=== PATIENT | female | born 1960 | race Caucasian/White ===

== ENCOUNTER 2017-01-31 16:13 | Emergency (ER) | payer OTHER ==
[~2017-01-31] VITALS: Ht 167.6 cm; Wt 99.8 kg
[~2017-01-31 16:13] MED LIST: ASPIR 8181 MG PO; CELEBREX 200 M200 M1 PO; CRESTOR10 MG; FENOFIBRATE160 MG PO; GLUCOPHAGE500 MG PO; GLYBURIDE 3 MG M3 M1; GLYBURIDE 3 MG M3 M1 PO; IBUPROFEN 800800 M1 PO; LOPRESSOR25 PO; MICARDIS 20MG T20 M1 PO; MICARDIS40 MG; NEURONTIN 300300 M1 PO; NEXIUM 40 MG CA40 M1 PO; PERCOCET 5-3251 EACH PO
[2017-01-31 16:14] VITALS: BP 130/80
[2017-01-31] MEDS ORDERED: IBUPROFEN 600600 M1 PO (17:00)
[2017-01-31] MEDS ORDERED: ULTRAM 50MG TAB50 MG PO (17:00)
== END 2017-01-31 17:48 | disposition home or self-care (01) ==
LOC: ER 16:13
DX: S62.636A Displaced fracture of distal phalanx of right little finger, initial encounter for closed fracture (principal); E11.9 Type 2 diabetes mellitus without complications; E78.00 Pure hypercholesterolemia, unspecified; Z88.8 Allergy status to other drugs, medicaments and biological substances; Z88.0 Allergy status to penicillin; X58.XXXA Exposure to other specified factors, initial encounter; Y93.89 Activity, other specified; Y92.89 Other specified places as the place of occurrence of the external cause; Y99.8 Other external cause status

== ENCOUNTER 2019-04-21 22:12 | Inpatient (IN) | payer OTHER ==
[~2019-04-21] VITALS: Ht 167.6 cm; Wt 107.3 kg
[~2019-04-21 22:12] MED LIST changes: +IBUPROFEN 600600 M1 PO; +ULTRAM 50MG TAB50 MG PO
[2019-04-21 22:18] VITALS: BP 137/68
[2019-04-21 22:49] LABS: ABSOLUTE NEUTROPHILS 6.9 thou/uL (1.4-8.2); BASOPHILS 0.8 % (0.0-2.0); EOSINOPHILS 2.1 % (0.0-3.0); HEMATOCRIT 41.7 % (37.0-47.0); HEMOGLOBIN 12.8 gm/dL (12.0-15.0); LYMPHOCYTES 25.3 % (24.0-44.0); MCH 22.7 pg (26.0-34.0); MCHC 30.6 g/dL (28.0-37.0); MCV 74.1 fL (80.0-100.0); MONOCYTES 5.6 % (1.0-8.0); PLATELET COUNT 544 thou/uL (150-400); POLYS 66.2 % (36.0-66.0); RBC 5.63 mil/uL (4.20-5.00); RDW 18.5 % (10.5-14.5); WBC 10.5 thou/uL (4.0-11.0)
[2019-04-21 22:52] LABS: APTT 26.8 Seconds (24.5-32.8); PROTIME 10.7 Seconds (9.3-11.4)
[2019-04-21 22:53] LABS: ANION GAP 11 mmol/L (7-16); BUN 30 mg/dL (7-18); CHLORIDE 102 mmol/L (98-107); CO2 26 mmol/L (21-32); CREATININE 1.1 mg/dL (0.6-1.0); GLUCOSE 253 mg/dL (74-106); POTASSIUM 4.2 mmol/L (3.5-5.1); SODIUM 139 mmol/L (136-145)
[2019-04-21 23:03] LABS: ALBUMIN 3.5 g/dL (3.4-5.0); SGOT 36 U/L (15-37); SGPT 39 U/L (30-65); TOTAL BILIRUBIN 0.3 mg/dL (<0.1-1.0); TOTAL PROTEIN 6.7 g/dL (6.4-8.2); TROPONIN-I <0.06 ng/mL (<0.06)
[2019-04-22] VITALS (7 sets, daily range): BP systolic 97–165; BP diastolic 55–81
[2019-04-22] MEDS ORDERED: TRICOR145 MG PO (02:38)
[2019-04-22] MEDS ORDERED: AMARYL4 MG PO (02:45)
[2019-04-22] MEDS ORDERED: CRESTOR40 MG PO (02:47)
[2019-04-22] MEDS ORDERED: HYDROCHLOROTHIA25 M2 PO (02:48)
[2019-04-22] MEDS ORDERED: LANTUS100 UNIT/M SUBQ (02:50)
[2019-04-22] MEDS ORDERED: VICTOZA0.6 MG/0.1 SUBQ (02:51)
[2019-04-22] MEDS ORDERED: ZYRTEC 10 MG TA10 MG PO (02:52)
[2019-04-22] MEDS ORDERED: PROAIR RESPICL90 MCG INH (02:54)
[2019-04-22] MEDS ORDERED: NOVOLOG100 UNIT/1 SUBQ (02:55)
[2019-04-22] MEDS ORDERED: MICARDIS40 MG PO (03:02)
--- NOTE | 2019-04-22 07:49 | NUR ---
Arrived from ER around 0130 accompanied by daughter. Pt. is on amiodarone gtt. and has converted to SR on the way here from ER and has maintained SR. Denies any chest discomfort since arrival. O2 sat of 97% on 2L/NC and verbalized shortness of breath with exertion especially while her HR was elevated in ED. Will continue to monitor.
--- NOTE | 2019-04-22 11:27 | 2DMMODE ---
[facility] [address] [facility] [address] [place] [address] 2 D/M-MODE ECHOCARDIOGRAM Name: LUBNA MILLER Room #: 354-P ADM IN M.R.#: [id number] Admission: 04/22/19 Attend Phys: Tomas Londono MD Discharge: Date of : 56 Report #: [id number] THIS REPORT FOR: //name// APPROVED REPORT Study performed: 04/22/2019 10:40:47 EXAM: Comprehensive 2D, Doppler, and color-flow Echocardiogram Patient Location: Echo lab Room #: 354 Status: routine BSA: 2.15 HR: 78 bpm BP: 114/62 mmHg Rhythm: NSR Other Information Study Quality: Adequate Indications Atrial Fibrillation Hx: CAD with angioplasty, HTN, DM, obesity, tob abuse. 2D Dimensions RVDd: 37.28 mm IVSd: 12.35 (7-11mm) LVOT Diam: 20.48 (18-24mm) LVDd: 44.64 mm PWd: 12.45 (7-11mm) Ascending Ao: 28.50 (22-36mm) LVDs: 31.41 (25-40mm) Aortic Root: 27.78 mm Volumes Left Atrial Volume (Systole) Single Plane 4CH: 60.90 mL Single Plane 2CH: 67.86 mL LA ESV Index: 32.00 mL/m2 Aortic Valve AoV Peak Carmine.: 1.82 m/s AO Peak Gr.: 13.26 mmHg LVOT Max P.53 mmHg LVOT Max V: 1.46 m/s JULIO CÉSAR Vmax: 2.64 cm2 Mitral Valve E/A Ratio: 0.8 MV Decel. Time: 317.67 ms [facility] [place] [address] 2 D/M-MODE ECHOCARDIOGRAM Name: LUBNA MILLER Room #: 354-P [facility] IN [facility]#: [id number] Admission: 04/22/19 Attend Phys: Tomas Londono MD Discharge: Date of : 56 Report #: [id number] MV E Max Carmine.: 1.23 m/s MV A Carmine.: 1.52 m/s MV PHT: 92.12 ms IVRT: 51.90 ms Pulmonary Valve PV Peak Carmine.: 1.09 m/s PV Peak Gr.: 4.79 mmHg Pulmonary Vein P Vein S: 0.65 m/s P Vein A: 0.31 m/s P Vein D: 0.33 m/s P Vein A Dur.: 128.0 msec P Vein S/D Ratio: 1.97 Tricuspid Valve TR Peak Carmine.: 3.25 m/s RAP Estimate: 10.00 mmHg TR Peak Gr.: 42.27 mmHg PA Pressure: 52.00 mmHg Left Ventricle The left ventricle is normal size. There is normal LV segmental wall motion. Mild concentric left ventricular hypertrophy. Left ventricular systolic function is normal. LVEF is 65-70%. Mild diastolic dysfunction is present (impaired relaxation pattern). Right Ventricle The right ventricle is normal size. The right ventricular systolic function is normal. Atria The left atrium size is normal. The right atrium size is normal. Aortic Valve The aortic valve is normal in structure. No aortic regurgitation is present. There is no aortic valvular stenosis. Mitral Valve The mitral valve is normal in structure. Mild mitral annular calcification. Mild mitral regurgitation. Tricuspid Valve The tricuspid valve is normal in structure. Trace tricuspid regurgitation. Estimated PAP is 50-55mmHg. Pulmonic Valve [facility] [address] [place] [address] 2 D/M-MODE ECHOCARDIOGRAM Name: LUBNA MILLER Room #: 354-P [facility] IN .R.#: [id number] Admission: 04/22/19 Attend Phys: Tomas Londono MD Discharge: Date of : 56 Report #: [id number] Pulmonic valve is not well visualized. Trace pulmonic regurgitation. Great Vessels The aortic root is normal in size. The ascending aorta is normal in size. IVC is dilated and collapses <50% with inspiration. Pericardium There is no pericardial effusion. <Conclusion> The left ventricle is normal size. Mild concentric left ventricular hypertrophy. Left ventricular systolic function is normal. Mild diastolic dysfunction is present (impaired relaxation pattern). The right ventricle is normal size. The left atrium size is normal. The aortic valve is normal in structure. Mild mitral regurgitation. Trace tricuspid regurgitation. Estimated PAP is 50-55mmHg. <ELECTRONICALLY SIGNED> By: Sammy Whittaker MD 04/22/191126 26 26 Sammy Whittaker MD /INF
--- NOTE | 2019-04-22 15:09 | NUR ---
ASSESSMENT: CM REVIEWED CHART AND MET WITH PATIENT AT THE BEDSIDE. PT IS ALERT AND ORIENTED. PT WAS ADMITTED WITH CP AFIB/RVR. PT REPORTS SHE LIVES IN A HOUSE WITH HER DAUGHTER AND BROTHER. PT REPORTS SHE LIVES IN THE BASEMENT AND HAS ABOUT 11 STEPS WITH HANDRAILS TO GET DOWN THERE. PT REPORTS SHE IS INDEPENDENT WITH ADLS AND AMBULATION. PT DENIES HAVING OXYGEN AT HOME. CM DISCUSSED ROLE. PT DOES NOT ANTICIPATE HAVING ANY NEEDS AT DISCHARGE. CM WILL CONTINUE TO FOLLOW TO ASSIST NEEDED.
--- NOTE | 2019-04-23 03:25 | NUR ---
PT MAKING PROGRESS TOWARDS GOALS. DENIES ANY CHEST PAIN OVERNIGHT. NO AFIB OBSERVED PER TELE. NPO SINCE MIDNIGHT FOR AM STRESS TEST.
[2019-04-23 04:11] VITALS: BP 152/92
[2019-04-23 07:56] LABS: AMP/METHAMP Negative (Negative); BARBITURATES Negative (Negative); BENZODIAZEPINES Negative (Negative); COCAINE Negative (Negative); METHADONE Negative (Negative); OPIATES Negative (Negative); PCP Negative (Negative)
--- NOTE | 2019-04-23 07:57 | EKG ---
[address] [address] ELECTROCARDIOGRAM REPORT Name: LUBNA MILLER Room #: 354-P ADM IN M.R.#: [id number] Admission: 04/22/19 Attend Phys: Tomas Londono MD Discharge: Date of : 56 Report #: [id number] THIS REPORT FOR: //name// [facility] ED Test Date: 2019-04-21 Test Time: 22:19:22 Pat Name: LUBNA MILLER Department: Room: 354 Gender: F Dam Worker: JAMARI : 1960 Requested By: Ahmet Steele Order Number: [id number] MD: Mazin Davis Measurements Intervals [place] Rate: 190 P: OR: QRS: 27 QRSD: 85 T: 47 QT: 273 QTc: 486 Interpretive Statements Atrial fibrillation with rapid V-rate Minimal ST depression, inferior leads No previous ECG available for comparison Electronically Signed On 04-23-2019 7:57:35 CDT by Mazin Davis [email or web address] <ELECTRONICALLY SIGNED> By: Mazin Davis MD 04/23/19 0757 D: [id number] 18 Mazin Davis MD /LINN
[2019-04-23 08:00] VITALS: BP 131/79
--- NOTE | 2019-04-23 08:29 | HC ---
[facility] [place] [address] CONSULTATION Name: LUBNA MILLER Room #: 354-P ADM IN M.R.#: [id number] Admission: 04/22/19 Attend Phys: Tomas Londono MD Discharge: Date of : 56 Report #: [id number] THIS REPORT FOR: //name// CC: Tomas Londono [facility] physician/PCP Sang Garcia DATE OF SERVICE: 04/22/2019 CARDIOLOGY CONSULTATION INDICATION: Chest discomfort. HISTORY OF PRESENT ILLNESS: This is a 59-year-old female with a history of diabetes mellitus, obesity, hypercholesterolemia and edema, presenting with acute onset of chest discomfort. After dinner last evening, she felt chest discomfort and noted a fast heart rate on her Apple Watch. She felt palpitations as well. The patient denies any episodes of fever, diarrhea, cough or dysuria. In the ER, she was noted to have atrial fibrillation with a rapid ventricular rate. In the ER, she was managed with IV Cardizem with no significant improvement in the heart rate. She is given amiodarone IV and her rhythm has converted to sinus. Routinely, she does not offer any complaints of chest pains with ambulation. She does have dyspnea with walking upstairs, may be related to deconditioning. There is no history of PND or orthopnea. PAST MEDICAL HISTORY: Reports having possibly a coronary angiogram more than 20 years ago at [facility], unsure if stent was placed. History of diabetes mellitus, hypercholesterolemia and edema. Denies any history of CVA. ALLERGIES: Include LISINOPRIL, LOSARTAN and PENICILLIN. MEDICATIONS: Include Neurontin, Amaryl, Crestor 40 mg at night, hydrochlorothiazide daily, insulin, Victoza, Micardis 40 mg daily, metformin and aspirin. SOCIAL HISTORY: Denies tobacco use. FAMILY HISTORY: Negative for premature CAD. REVIEW OF SYSTEMS: A full 10-point review of systems performed. Only the pertinent positives and negatives are described in the HPI. PHYSICAL EXAMINATION: VITAL SIGNS: Blood pressure is 114/60, heart rate is 70 beats per minute. GENERAL APPEARANCE: An overweight female, in no acute distress. HEENT: Normocephalic, atraumatic. Oral mucosa moist. [facility] [address] [place] [address] CONSULTATION Name: LUBNA MILLER Room #: 354-P [facility] IN ..#: [id number] Admission: 04/22/19 Attend Phys: Tomas Londono MD Discharge: Date of : 56 Report #: [id number] NECK: Supple, no JVD. LUNGS: Clear to auscultation. CARDIAC: Regular rate and rhythm, S1, S2 positive. ABDOMEN: Soft, protuberant, bowel sounds positive. EXTREMITIES: No cyanosis, positive edema. ECG reveals atrial fibrillation with a rapid ventricular rate. LABORATORY VALUES: Creatinine is 1.1. White count is 10.5, hemoglobin is 12.8. Troponin is 0.15. ASSESSMENT AND PLAN: 1. Atrial fibrillation, newly diagnosed with symptoms of chest discomfort and palpitations. The rhythm has converted to sinus, on amiodarone. The CHADS-VASc score is approximately 2, will need anticoagulation therapy. Can discontinue IV amiodarone. We will need to evaluate her cardiac status with echo and stress test. 2. Troponin elevation, may be related to tachycardia. We will need an ischemic evaluation with stress testing. 3. Diabetes mellitus, continue with insulin and check fingersticks. 4. Hypercholesterolemia, continue with Crestor. 5. Hypertension. <ELECTRONICALLY SIGNED> By: Sammy Whittaker MD 04/23/19 0829 0902 1549 Sammy Whittaker MD /nt
[2019-04-23 12:45] VITALS: BP 138/74
--- NOTE | 2019-04-23 13:32 | NUR ---
on-going assessment: pt is to have second part of stress test completed today and then will likely discharge if it is negative. pt will have no needs from cm at discharge.
[2019-04-23 15:00] VITALS: BP 149/84
--- NOTE | 2019-04-23 16:14 | NUR ---
PT ALERT AND ORIENTED TIMES FOUR. VSS, SR ON TELE. PT DENEIS PAIN/SOA. PT TOLERATES MEDS AND MEALS. PT UP TO RESTROOM WITH STANDBY ASSIST. PART TWO OF STRESS TEST DONE TODAY. PT WILL NPO AFTER MIDNIGHT FOR CARDIAC CATH TOMORROW. PT DAUGHTER AT BEDSIDE. WILL CONTINUE TO MONITOR.
[2019-04-23 19:45] VITALS: BP 185/98
--- NOTE | 2019-04-24 03:12 | NUR ---
patient is alert and oriented. paitnet is up ad marcial. patient is on room air. patient is pending cath today. patient has been npo sense midnight. patient had pre op bath. patient has a Lt AC iv. patient is achs accuchecks. patient is nsr. patient denies pain. patient is resting comfortably in bed. wcm. patient is progressing to goals.
[2019-04-24 04:15] VITALS: BP 156/80
[2019-04-24 05:48] LABS: ABSOLUTE NEUTROPHILS 4.9 thou/uL (1.4-8.2); BASOPHILS 1.1 % (0.0-2.0); EOSINOPHILS 2.6 % (0.0-3.0); HEMATOCRIT 37.5 % (37.0-47.0); HEMOGLOBIN 11.6 gm/dL (12.0-15.0); LYMPHOCYTES 27.4 % (24.0-44.0); MCHC 31.1 g/dL (28.0-37.0); MONOCYTES 6.5 % (1.0-8.0); POLYS 62.4 % (36.0-66.0); RBC 5.06 mil/uL (4.20-5.00); RDW 18.2 % (10.5-14.5); WBC 7.8 thou/uL (4.0-11.0)
[2019-04-24 05:58] LABS: PLATELET COUNT 434 thou/uL (150-400)
[2019-04-24 06:09] LABS: ALBUMIN 3.4 g/dL (3.4-5.0); CALCIUM 8.9 mg/dL (8.5-10.1); CREATININE 0.8 mg/dL (0.6-1.0); POTASSIUM 4.3 mmol/L (3.5-5.1); TOTAL BILIRUBIN 0.4 mg/dL (<0.1-1.0); TOTAL PROTEIN 6.1 g/dL (6.4-8.2)
[2019-04-24 08:59] VITALS: BP 141/84
--- NOTE | 2019-04-24 10:21 | CATHLAB ---
[facility] [address] [place] [address] INVASIVE PROCEDURE REPORT Name: LUBNA MILLER Room #: 354-P ADM IN .R.#: [id number] Admission: 04/22/19 Attend Phys: Tomas Londono MD Discharge: Date of : 56 Report #: [id number] THIS REPORT FOR: //name// APPROVED REPORT Study performed: 04/24/2019 08:18:43 Patient Details Patient Status: In-Patient Room #: The patient is a 59 year-old female Event Personnel Sammy Whittaker Manufacture Specialist, Hardik Castellanos RN RN, Sophia Sethi RTR Gary Still David Monitor Procedures Performed Left Heart Cath w/or w/o Coronaries [id number] [facility] Indication Atrial fibrillation, Dyspnea, Positive stress test, Chest pain Risk Factors Obesity, Hypercholesterolemia, Coronary Artery DiseaseHypertension, Diabetes Procedure Narrative The Right Groin^ was infiltrated with 1% Lidocaine subcutaneous anesthesia. A PINNACLE 4FR Sheath #[id number] sheath was inserted into the RFA^. Coronary angiography was performed using coronary diagnostic catheters. The right coronary system was accessed and visualized with a JR4 catheter. The left coronary system was accessed and visualized with a JL4 catheter. The left ventricle was accessed and visualized with a PIGTAIL catheter. Left ventricular/Aortic Valve gradient assessed via catheter pullback. Left ventriculogram was performed in 30 degree projection. Hemostasis was obtained with manual pressure following sheath removal without any complications. The patient tolerated the procedure well and there were no complications associated with the procedure. There was no hematoma. Intraoperative Conscious Sedation Sedation start time: 8.10 Case end Time: 8.37 Fentanyl 50 mcg Versed 1 mg [facility] [address] [place] [address] INVASIVE PROCEDURE REPORT Name: LUBNA MILLER Room #: 354-P [facility] IN [facility]#: [id number] Admission: 04/22/19 Attend Phys: Tomas Londono MD Discharge: Date of : 56 Report #: [id number] Fluoro Time: 2.60 minutes Dose: DAP 5199.00 cGycm2 1223 mGy Contrast Type and Amount: Omnipaque 100 ml Coronary Angiography The patient's coronary anatomy is right dominant. Diagnostic Cath Left Main This is a large caliber vessel, patent with no flow-limiting lesions. LAD This is a moderate size caliber vessel, traversing the anterior wall and wrapping around the apex. There is mild diffuse disease in the mid segment, 20%. Diagonal 1 This is a patent vessel, with no flow-limiting lesions. Circumflex This is a moderate size caliber vessel, with mild disease in the mid segment, 20%. OM1 This is a moderate size caliber vessel, travels the inferolateral segment and supplies several branches. This vessel is patent with no flow-limiting lesions. Right Coronary This is a dominant vessel with mild to moderate disease in the proximal segment, 30-40%. R PDA This is a patent vessel, with no flow-limiting lesions. RPLV This is a patent vessel, with no flow-limiting lesions. Left Ventriculography The left ventricle is normal in size with normal contractility. Hemodynamics The aortic pressure is 150/84 mmHg with a mean of 109 mmHg. The left ventricular pressure is 149/15 mmHg with a mean of mmHg. The left ventricular end diastolic pressure is 24 mmHg. There was no gradient across the aortic valve upon pullback. Pullback from the left ventricle to the aorta revealed no gradient across the aortic valve. Conclusion 1. There is mild disease in the LAD and left circumflex arteries. 2. There is mild to moderate disease in the RCA. [facility] [address] [place] [address] INVASIVE PROCEDURE REPORT Name: LUBNA MILLER Room #: 354-P ADM IN M.R.#: [id number] Admission: 04/22/19 Attend Phys: Tomas Londono MD Discharge: Date of : 56 Report #: [id number] 3. There is normal LV systolic function. 4. Recommend aggressive risk factor management. <ELECTRONICALLY SIGNED> By: Sammy Whittaker MD 04/24/19 1020 1020 1020 Sammy Whittaker MD /INF
[2019-04-24 11:19] VITALS: BP 183/91
[2019-04-24] MEDS ORDERED: ELIQUIS5 MG PO (11:19)
[2019-04-24] MEDS ORDERED: METOPROLOL SUCC25 M1 PO (11:19)
[2019-04-24 11:55] VITALS: BP 183/91
--- NOTE | 2019-04-24 12:57 | NUR ---
ON-GOING ASSESSMENT: PT HAS ORDERS TO DISCHARGE HOME TODAY.
--- NOTE | 2019-04-24 16:46 | NUR ---
PATIENT DISCHARGED HOME WITH FAMILY. SHE IS ALERT ORIENTED X4. SHE DOES NOT SEEM TO BE IN ANY DISTRESS AT TIME OF DISCHARGED. NEW MEDS EXPLAINED. DRESSING TO CATH INCISION REMAINS INTACT, NO BLOOD NOTED.
--- NOTE | 2019-04-25 15:07 | EKG ---
[address] [address] ELECTROCARDIOGRAM REPORT Name: LUBNA MILLER Room #: 354-P [facility] IN M.R.#: [id number] Admission: 04/22/19 Attend Phys: Tomas Londono MD Discharge: 04/24/19 Date of : 56 Report #: [id number] THIS REPORT FOR: //name// [facility] Test Date: 2019-04-24 Test Time: 07:44:39 Pat Name: LUBNA MILLER Department: Room: 354 Gender: F Casing Crew: FEROZ : 1960 Requested By: Malika Staton Order Number: [id number] MD: Mazin Davis Measurements Intervals [place] Rate: 83 P: 2 IA: 143 QRS: 48 QRSD: 89 T: 53 QT: 405 QTc: 476 Interpretive Statements Sinus rhythm Ventricular trigeminy Low voltage, precordial leads Compared to ECG 04/21/2019 22:19:22 Ventricular premature complex(es) now present Low QRS voltage now present Atrial fibrillation no longer present ST (T wave) deviation no longer present Electronically Signed On 04-25-2019 15:07:15 CDT by Mazin Davis [email or web address] <ELECTRONICALLY SIGNED> By: Mazin Davis MD 04/25/19 1507 0744 0744 Mazin Davis MD /EPI
== END 2019-04-24 13:35 | disposition home or self-care (01) | DRG 287 ==
LOC: ER 22:12 → 3W 04-22 00:01 → EROBS 04-22 00:01 → 3W 04-22 01:10 → ENTRNSPT 04-24 11:56 → EDTRNSPTSTS 04-24 12:34 → 3W 04-24 13:35
PROVIDERS: Emergency Medicine; Nurse Practitioner; ADMIT Hospitalist
DX: I48.91 Unspecified atrial fibrillation (principal); I25.10 Atherosclerotic heart disease of native coronary artery without angina pectoris; E11.9 Type 2 diabetes mellitus without complications; I10 Essential (primary) hypertension; E83.42 Hypomagnesemia; E78.00 Pure hypercholesterolemia, unspecified; Z88.0 Allergy status to penicillin; Z88.8 Allergy status to other drugs, medicaments and biological substances; Z87.891 Personal history of nicotine dependence; Z82.49 Family history of ischemic heart disease and other diseases of the circulatory system; Z83.3 Family history of diabetes mellitus; Z79.82 Long term (current) use of aspirin; Z79.899 Other long term (current) drug therapy
CPT/HCPCS: 10879

== ENCOUNTER → 2019-11-10 | Outpatient (CLI) | payer OTHER ==
[~2019-11-10] MED LIST changes: +AMARYL4 MG PO; +CRESTOR40 MG PO; +ELIQUIS5 MG PO; +HYDROCHLOROTHIA25 M2 PO; +LANTUS100 UNIT/M SUBQ; +METOPROLOL SUCC25 M1 PO; +MICARDIS40 MG PO; +NOVOLOG100 UNIT/1 SUBQ; +PROAIR RESPICL90 MCG INH; +TRICOR145 MG PO; +VICTOZA0.6 MG/0.1 SUBQ; +ZYRTEC 10 MG TA10 MG PO
== END ==
LOC: SJCVC 13:05
DX: I48.91 Unspecified atrial fibrillation (principal); I10 Essential (primary) hypertension; E78.00 Pure hypercholesterolemia, unspecified; R60.9 Edema, unspecified; E11.9 Type 2 diabetes mellitus without complications; I25.10 Atherosclerotic heart disease of native coronary artery without angina pectoris; E66.9 Obesity, unspecified; Z87.891 Personal history of nicotine dependence; Z79.82 Long term (current) use of aspirin; Z79.899 Other long term (current) drug therapy; Z79.84 Long term (current) use of oral hypoglycemic drugs

== ENCOUNTER → 2020-05-18 | Outpatient (CLI) | payer OTHER | LOC: SJCVC 14:44 | PROVIDERS: ATTEND Internal Medicine Cardiovascular Disease | DX: I25.10 Atherosclerotic heart disease of native coronary artery without angina pectoris (principal); I48.0 Paroxysmal atrial fibrillation; I10 Essential (primary) hypertension; E78.00 Pure hypercholesterolemia, unspecified ==

== ENCOUNTER → 2020-06-21 | Outpatient (CLI) | payer OTHER | LOC: SJCVC 14:27 | PROVIDERS: ATTEND Internal Medicine Cardiovascular Disease | DX: R00.2 Palpitations (principal); I11.9 Hypertensive heart disease without heart failure; I25.10 Atherosclerotic heart disease of native coronary artery without angina pectoris; I48.0 Paroxysmal atrial fibrillation ==

== ENCOUNTER → 2020-06-30 | Outpatient (CLI) | payer OTHER ==
--- NOTE | 2020-06-30 11:37 | 2DMMODE ---
[facility] [place] [address] 2 D/M-MODE ECHOCARDIOGRAM Name: LUBNA MILLER Room #: REG MARISELA Janett#: [id number] Admission: 06/30/20 Attend Phys: Sammy Whittaker MD Discharge: Date of : 56 Report #: [id number] THIS REPORT FOR: cc: Physician not on staff Physician not on staff Sammy Whittaker MD ~ APPROVED REPORT Study performed: 06/30/2020 10:11:20 EXAM: Comprehensive 2D, Doppler, and color-flow Echocardiogram Patient Location: Echo lab Room #: 2 Status: routine BSA: 2.08 HR: 130 bpm BP: 130/88 mmHg Rhythm: Tachycardia Other Information Study Quality: Adequate Indications Arrhythmia Dyspnea Hx: HTN 2D Dimensions RVDd: 40.04 mm IVSd: 13.23 (7-11mm) LVOT Diam: 18.21 (18-24mm) LVDd: 44.66 mm PWd: 14.24 (7-11mm) Ascending Ao: 25.45 (22-36mm) LVDs: 28.98 (25-40mm) Aortic Root: 22.57 mm IVC: 25.00 mm Volumes Left Atrial Volume (Systole) Single Plane 4CH: 88.11 mL Single Plane 2CH: 74.48 mL LA ESV Index: 40.65 mL/m2 Aortic Valve AoV Peak Carmine.: 1.68 m/s AO Peak Gr.: 11.30 mmHg LVOT Max P.44 mmHg LVOT Max V: 1.05 m/s [facility] [place] [address] [place] [address] 2 D/M-MODE ECHOCARDIOGRAM Name: LUBNA MILLER Room #: REG [facility]#: [id number] Admission: 06/30/20 Attend Phys: Sammy Whittaker MD Discharge: Date of : 56 Report #: [id number] JULIO CÉSAR Vmax: 1.63 cm2 Pulmonary Valve PV Peak Carmine.: 0.81 m/s PV Peak Gr.: 2.62 mmHg Tricuspid Valve TR Peak Carmine.: 3.00 m/s TR Peak Gr.: 35.98 mmHg PA Pressure: 46.00 mmHg Left Ventricle The left ventricle is normal size. There is global hyperkinesis of the left ventricle. Mild concentric left ventricular hypertrophy. The left ventricular systolic function is normal. LVEF is 60%. This study is not technically sufficient to allow evaluation of the LV diastolic function due to arrhythmia. Right Ventricle The right ventricle is normal size. The right ventricular systolic function is normal. Atria Left atrium is dilated. Right atrium is dilated. Aortic Valve The aortic valve is normal in structure. No aortic regurgitation is present. There is no aortic valvular stenosis. Mitral Valve The mitral valve is normal in structure. Mild mitral regurgitation. No evidence of mitral valve stenosis. Tricuspid Valve The tricuspid valve is normal in structure. Mild tricuspid regurgitation. Estimated PAP 46mmHg. Pulmonic Valve Pulmonic valve is not well visualized but appears normal. There is no pulmonic valvular regurgitation. Great Vessels The aortic root is normal in size. The ascending aorta is normal in size. IVC is dilated and collapses >50% with inspiration. Pericardium [facility] [address] [address] 2 D/M-MODE ECHOCARDIOGRAM Name: LUBNA MILLER Room #: REG CL [facility]#: [id number] Admission: 06/30/20 Attend Phys: Sammy Whittaker MD Discharge: Date of : 56 Report #: [id number] There is no pericardial effusion. <Conclusion> The left ventricle is normal size. Mild concentric left ventricular hypertrophy. The left ventricular systolic function is normal. The right ventricle is normal size. Left atrium is dilated. The aortic valve is normal in structure. Mild mitral regurgitation. Mild tricuspid regurgitation. Estimated PAP 46mmHg. <ELECTRONICALLY SIGNED> By: Sammy Whittaker MD 06/30/20 1136 1136 1136 Sammy Whittaker MD /INF
== END ==
LOC: CV 09:27
PROVIDERS: ATTEND Internal Medicine Cardiovascular Disease
DX: I08.1 Rheumatic disorders of both mitral and tricuspid valves (principal); I10 Essential (primary) hypertension

== ENCOUNTER → 2020-07-08 | Outpatient (CLI) | payer OTHER | LOC: SJCVC 14:58 | PROVIDERS: ATTEND Internal Medicine Cardiovascular Disease | DX: R94.31 Abnormal electrocardiogram [ECG] [EKG] (principal); I48.91 Unspecified atrial fibrillation; E66.9 Obesity, unspecified; E11.9 Type 2 diabetes mellitus without complications; I10 Essential (primary) hypertension; E78.5 Hyperlipidemia, unspecified ==

== ENCOUNTER 2020-07-12 14:36 | Inpatient (IN) | payer OTHER ==
[~2020-07-12] VITALS: Ht 165.1 cm; Wt 94.3 kg
[2020-07-12 14:38] VITALS: BP 127/71
[2020-07-12 15:12] LABS: BE(vivo) -2.9 mmol/L (-2 to +3); sO2 83.2 % (92.0-98.0)
[2020-07-12 15:13] LABS: PO2 52.9 mmHg (80.0-100.0); pH 7.291 (7.360-7.450)
[2020-07-12 15:30] LABS: ABSOLUTE NEUTROPHILS 10.2 thou/uL (1.4-8.2); BASOPHILS 1.3 % (0.0-2.0); EOSINOPHILS 1.2 % (0.0-3.0); HEMATOCRIT 35.7 % (37.0-47.0); HEMOGLOBIN 11.1 gm/dL (12.0-15.0); LYMPHOCYTES 11.4 % (24.0-44.0); MCHC 31.2 g/dL (28.0-37.0); MONOCYTES 5.6 % (1.0-8.0); PLATELET COUNT 570 thou/uL (150-400); POLYS 80.5 % (36.0-66.0); RBC 4.64 mil/uL (4.20-5.00); RDW 17.6 % (10.5-14.5); WBC 12.7 thou/uL (4.0-11.0)
[2020-07-12 15:38] LABS: ANION GAP 8 mmol/L (7-16); BUN 52 mg/dL (7-18); CALCIUM 9.3 mg/dL (8.5-10.1); CHLORIDE 107 mmol/L (98-107); CO2 28 mmol/L (21-32); GLUCOSE 192 mg/dL (74-106); SODIUM 143 mmol/L (136-145)
[2020-07-12 15:46] LABS: ALBUMIN 3.6 g/dL (3.4-5.0); SGOT 14 U/L (15-37); SGPT 20 U/L (30-65); TOTAL BILIRUBIN 0.6 mg/dL (0.2-1.0); TOTAL PROTEIN 6.9 g/dL (6.4-8.2); TROPONIN-I <0.06 ng/mL (<0.06)
[2020-07-12 17:31] VITALS: BP 114/34
[2020-07-12 18:38] LABS: FOLIC ACID 18.7 ng/mL (8.6-58.9)
[2020-07-12 23:06] LABS: BE(vivo) -4.7 mmol/L (-2 to +3); HCO3 22.8 mmol/L (22.0-26.0); PCO2 52.6 mmHg (35.0-45.0); PO2 139.4 mmHg (80.0-100.0); sO2 98.4 % (92.0-98.0)
[2020-07-12 23:08] LABS: pH 7.254 (7.360-7.450)
[2020-07-12 23:14] LABS: URINE BILIRUBIN 1+ (Negative); URINE BLOOD NEGATIVE (Negative); URINE CLARITY SL CLOUDY; URINE COLOR YELLOW; URINE GLUCOSE-RANDOM* TRACE (Negative); URINE KETONES NEGATIVE (Negative); URINE LEUKOCYTES-REFLEX NEGATIVE (Negative); URINE NITRITE-REFLEX NEGATIVE (Negative); URINE PROTEIN (DIPSTICK) 3+ (Negative); URINE SPECIFIC GRAVITY >= 1.030 (1.005-1.035)
[2020-07-12 23:22] LABS: AMORPHOUS URATES Few /LPF (None Seen); BACTERIA-REFLEX 1-9 Few /HPF (None Seen); CELLULAR CASTS 0-3 Few /LPF (None Seen); HYALINE CASTS 4-10 Moderate /LPF (None Seen); MUCUS 4-6 Moderate strn/LPF (None Seen); SQUAMOUS 0-3 Few /LPF (0-3); URINE RBC 0-2 Rare /HPF (0-2); URINE WBC-REFLEX 0-5 Rare /HPF (0-5)
[2020-07-12 23:49] VITALS: BP 114/58
[2020-07-13] VITALS (73 sets, daily range): BP systolic 95–176; BP diastolic 34–100
[2020-07-13 01:22] LABS: BE(vivo) -4.1 mmol/L (-2 to +3); HCO3 23.3 mmol/L (22.0-26.0); PCO2 53.2 mmHg (35.0-45.0); PO2 84.5 mmHg (80.0-100.0); pH 7.259 (7.360-7.450); sO2 94.8 % (92.0-98.0)
[2020-07-13 04:48] LABS: BE(vivo) -3.6 mmol/L (-2 to +3); HCO3 23.9 mmol/L (22.0-26.0); PCO2 54.6 mmHg (35.0-45.0); PO2 129.5 mmHg (80.0-100.0); sO2 98.1 % (92.0-98.0)
[2020-07-13 04:53] LABS: pH 7.259 (7.360-7.450)
--- NOTE | 2020-07-13 06:23 | NUR ---
Pt arrived on floor at 0120 with ER nurse. Is drowsy, awakens to sternal rub. Assessments done as documented. Continues on BIPAP settings with FIO2 of 50%. No respiratory disress noted. Family notified of patient's admission to ICU. Critical labs read to DR Solorio through the phone. BIPAP settings changed as per order. Will continue to monitor.
[2020-07-13 07:32] LABS: POTASSIUM 5.9 mmol/L (3.5-5.1)
[2020-07-13 07:34] LABS: MCHC 29.8 g/dL (28.0-37.0); WBC 12.9 thou/uL (4.0-11.0)
[2020-07-13 07:37] LABS: ABSOLUTE NEUTROPHILS 11.8 thou/uL (1.4-8.2); BASOPHILS 0.1 % (0.0-2.0); EOSINOPHILS 0.2 % (0.0-3.0); HEMATOCRIT 34.7 % (37.0-47.0); HEMOGLOBIN 10.3 gm/dL (12.0-15.0); MCH 23.2 pg (26.0-34.0); MCV 78.1 fL (80.0-100.0); MONOCYTES 2.2 % (1.0-8.0); PLATELET COUNT 496 thou/uL (150-400); POLYS 91.5 % (36.0-66.0); RBC 4.44 mil/uL (4.20-5.00); RDW 17.8 % (10.5-14.5)
[2020-07-13 09:25] LABS: CHOLESTEROL 136 mg/dL (<200); HDL CHOLESTEROL 33 mg/dL (>40); LDL CHOLESTEROL 76 mg/dL (<100); TC:HDL 4.1 Ratio (Not establshd); TRIGLYCERIDE 136 mg/dL (<150); VLDL 27 mg/dL (<40)
[2020-07-13 10:33] LABS: ANISOCYTOSIS 1+; BURR CELLS FEW; OVALOCYTES FEW; POIKILOCYTOSIS 1+; POLYCHROMASIA SLIGHT
--- NOTE | 2020-07-13 10:34 | NUR ---
cm completed the initial assessment to discuss hx and home situation. cm spk w/pt's dtr, paramjit. pt lives w/dtr and brother. pt is paramjit "legal guardian" and takes care of brother. pt drives, active and independent w/adls. pt has no dme. cm to cont to follow.
--- NOTE | 2020-07-13 18:39 | NUR ---
AT THIS TIME, PT IS ORIENTED TO SELF, PLACE, AND SITUATION. PT IS UNRESTRAINED, BUT IN HIGH OBSERVATION. PT VERBALIZES THAT SHE WILL NOT PULL LINES OR TUBES. O2 2L/MIN VIA NC W/ SPO2 98%. PT COUGHS AND DEEP BREATHES UPON REQUEST. DIURESED WELL TODAY. PT HAS BEEN NPO MOST OF THE DAY DUE TO BIPAP, BUT TAKES SIPS OF WATER WITHOUT PROBLEM AT THIS TIME. OVERALL, PT IS PROGRESSING TOWARD GOALS.
[2020-07-14] VITALS (30 sets, daily range): BP systolic 97–220; BP diastolic 38–159
[2020-07-14 01:06] LABS: GLYCOHEMOGLOBIN (HGB A1C) 7.9 % (4.8-5.6)
[2020-07-14 03:53] LABS: BE(vivo) 1.2 mmol/L (-2 to +3); HCO3 26.8 mmol/L (22.0-26.0); PCO2 46.7 mmHg (35.0-45.0); PO2 63.4 mmHg (80.0-100.0); pH 7.377 (7.360-7.450); sO2 91.7 % (92.0-98.0)
--- NOTE | 2020-07-14 04:34 | NUR ---
ASSESSMENTS CHARTED, MEDS CHARTED GIVEN. PATIENT ABLE TO ANSWER QUESTIONS APPROPRIATELY, BUT CONFUSED AND FORGETFUL ABOUT OTHER TIMES AND RECENT HISTORY. PATIENT PULLED OUT HER REMAINING IV, IV TEAM CAME AND PLACED NEW PIV IN LEFT UPPER ARM. GRANADOS IN PLACE DIURESING WELL, PATIENT SPOKE WITH HER DAUGHTER ALAINA TWICE DURING SHIFT. SKIN INTACT. AT 0400 PATIENT WENT INTO AFIB RVR AND CAME OUT OF IT ON HER OWN. EVENTUALLY SETTLED IN SINUS RHYTHM AGAIN. PATIENT WILL HOPEFULLY BE DOWN GRADED TODAY SHE IS BECOMING MORE ALERT AND VITALS STABLE. FALL PRECAUTIONS IN PLACE DURING SHIFT.
[2020-07-14 06:50] LABS: ALBUMIN 3.3 g/dL (3.4-5.0); CALCIUM 9.6 mg/dL (8.5-10.1); TOTAL BILIRUBIN 0.7 mg/dL (0.2-1.0); TOTAL PROTEIN 6.2 g/dL (6.4-8.2)
[2020-07-14 06:53] LABS: POTASSIUM 4.7 mmol/L (3.5-5.1)
[2020-07-14 10:10] LABS: HEMATOCRIT 34.2 % (37.0-47.0); HEMOGLOBIN 10.3 gm/dL (12.0-15.0); MCH 23.2 pg (26.0-34.0); MCHC 30.2 g/dL (28.0-37.0); MCV 76.8 fL (80.0-100.0); PLATELET COUNT 505 thou/uL (150-400); RBC 4.46 mil/uL (4.20-5.00); RDW 17.7 % (10.5-14.5); WBC 12.7 thou/uL (4.0-11.0)
[2020-07-14 10:48] LABS: ABSOLUTE NEUTROPHILS 11.8 thou/uL (1.4-8.2); PLATELET ESTIMATE NORMAL
--- NOTE | 2020-07-14 12:46 | NUR ---
PT'S DAUGHTER, ALAINA, HERE TO SEE PT. PT ASKED ALAINA TO TAKE HER PURSE AND ALL IT CONTAINS HOME WHEN SHE LEAVES. UPDATE GIVEN TO ALAINA.
--- NOTE | 2020-07-14 15:54 | NUR ---
Chart reveiwed and case discussed with the care team. Possible transfer out of the ICU today. She is progressing and was evaluated by PT/OT today. Dtr Jess here to visit. The pt is the legal guardian for her adult dtr Jess. They live in a basement apartment of her brother's home. The pt and her dtr are the caregivers for her brother who has alzh disease. They do the house hold chores and help manage his meds and finances. The pt is normally indep, drives and has 9 steps into the basement per the garage and another 9 steps up to the main level where her brother lives. The pt's dtr is able to help with Iadl's in the home. The pt is bilingual but dtr did help translate some during therapy sessions today. Will see how the pt does with therapy tomorrow as she will likely need HH referral. Unable to speak with the pt at this time as she is getting an EKG. INTELLIGENCE OFFICER updated. Will follow up with the pt on CCU regardin HH options and care team recommendations. Pt's dtr anxious for her mom to come back home soon.
--- NOTE | 2020-07-14 15:58 | NUR ---
PT DEVELOPED AFIB W/ RVR RATES 130'S TO 160'S. PT VERBALIZES, "I FEEL FUNNY, LIKE MY HEART IS RACING." O2 2L/MIN VIA NC PLACED. PT IS UP IN CHAIR WITH NO OTHER COMPLAINTS. DAUGHTER AT BEDSIDE AND UPDATED. EKG ORDERED AND DR. FELDMAN PAGED.
--- NOTE | 2020-07-14 16:17 | NUR ---
SPOKE W/ DR. MILLER WHO WAS IN THE UNIT ABOUT PT'S AFIB W/ RVR. ORDERS RECEIVED FOR AMIODARONE W/ LOADING DOSE. PT WAS PLACED IN BED FOR EKG AND ENCOURAGED TO STAY IN THE BED FOR NOW. DAUGHTER AT BEDSIDE. CONTACTED TOBIAS ADAMS NP, TO PROVIDE UPDATE, AND SHE STATED SHE WOULD NOTIFY DR. FELDMAN OF PT STATUS CHANGE AND DR. MILLER'S ORDERS, AND PROVIDE UPDATED ORDERS IF NEEDED.
--- NOTE | 2020-07-14 17:32 | NUR ---
PT BACK IN BED, O2 2L/MIN VIA NC, AFIB W/ RVR PERSISTS. PT MILDLY SOB W/ EXERTION. DISCOURAGED OOB ACTIVITY AT THIS TIME. AMIODARONE INFUSING @ 1MG/MIN AFTER LOADING DOSE COMPLETED. PT TOLERATING WELL. PT NOT PROGRESSING TOWARD GOALS AT THIS TIME DUE TO PERSISTENT AFIB W/ RVR. URINE OUTPUT EXCELLENT SECONDARY TO DIURESIS. APPETITE GOOD.
--- NOTE | 2020-07-14 18:40 | NUR ---
PT STILL ATTEMPTING TO EXIT THE BED WITHOUT CALLING FOR ASSISTANCE, SETTING OFF BED ALARM. PT IS VERY FORGETFUL AND IMPULSIVE. PT VERBALIZES CONCERN ABOUT HER ADULT DAUGHTER WHO IS AT HOME ALONE WITH HER UNCLE WHO HAS DEMENTIA. PT C/O BEING HOT. FAN TURNED ON AND WET WASHCLOTH PROVIDED. WILL CONTINUE TO MONITOR CLOSELY.
--- NOTE | 2020-07-14 18:43 | NUR ---
SPOKE WITH DAUGHTER, ALAINA. UPDATE PROVIDED.
--- NOTE | 2020-07-14 22:57 | NUR ---
AT AROUND 1950 PATIENT STARTED TRYING TO GET OUT OF BED. PATIENT SET OFF THE BED ALARM. PATIENT INSTRUCTED TO GET BACK INTO BED. THIS WORKED A COUPLE OF TIMES. THEN THE PATIENT STATED SHE HAD TO LEAVE AND GO HOME. PATIENT THEN REFUSED TO HEED INSTRUCTIONS AND TRIED TO JUST GET UP. I STOOD IN FRONT OF THE PATIENT AND TOLD HER SHE NEEDED TO STAY IN BED. PATIENT GOT ANGRY AND BELIGERENT. THE OTHER STAFF ON THE UNIT CAME. PATIENT BECAME MORE ANGRY AND STARTED SWINGING AT THE STAFF WHILE TRYING TO PULL OUT HER CATHETER, HER IV, SHE PULLED OUT THE CALL LIGHT, AND EVERYTHING ELSE. PATIENT WAS RESTRAINED WITH SOFT WRIST RESTRAINTS AT ABOUT 1999. BRAYAN ANAYA CONTACTED, AND HALDOL WAS ORDERED. HALDOL WAS ADMINISTERED. PATIENT'S DAUGHTER VISITED WITH HER, AND SHE BECAME MORE CALM. RESTRAINTS WERE REMOVED AT 2129. AT 2144 PATIENT STARTED BECOMING MORE AGITATED AND TRIED TO GET OUT OF BED, PULL AT HER LINES AND CATHETER. BRAYAN ANAYA CALLED AGAIN. PATIENT GIVEN HYDROXIZINE. PATIENT AT 2300'S BP HAS BEEN INCREASING, PATIENT IS STILL ANXIOUS AND AGITATED, AND PATIENT'S HR IS STILL AFIB RVR AT AROUND 140-170. BRAYAN ANAYA IS AWARE OF THIS.
[2020-07-15] VITALS (23 sets, daily range): BP systolic 127–166; BP diastolic 62–104
--- NOTE | 2020-07-15 04:11 | NUR ---
SPOKE WITH DR. HARRINGTON ABOUT PATIENT'S HEART RATE. IT HAS COME DOWN ABOUT 20-30 BPM SINCE STARTING CARDIZEM, BUT SHE IS STILL RUNNING 130S-140S. NO NEW ORDERS AT THIS TIME.
[2020-07-15 06:06] LABS: CALCIUM 9.7 mg/dL (8.5-10.1); CREATININE 1.9 mg/dL (0.6-1.0); POTASSIUM 3.7 mmol/L (3.5-5.1)
--- NOTE | 2020-07-15 07:23 | EKG ---
[address] [address] ELECTROCARDIOGRAM REPORT Name: LUBNA MILLER Room #: 244-P ADM IN M.R.#: [id number] Admission: 07/12/20 Attend Phys: Gerber Steve MD Discharge: Date of : 56 Report #: [id number] [facility] Test Date: 2020-07-14 Test Time: 16:08:49 Pat Name: LUBNA MILLER Department: Room: 244 Gender: F General Freight Agent: Nancy SANCHEZ : 1960 Requested By: Sang Garcia Order Number: [id number] MD: Iban Coy Measurements Intervals [place] Rate: 159 P: VT: QRS: 57 QRSD: 77 T: -85 QT: 300 QTc: 489 Interpretive Statements Atrial fibrillation with rapid V-rate Ventricular premature complex Borderline T abnormalities, inferior leads Baseline wander in lead(s) V6 Compared to ECG 07/12/2020 22:36:04 T-wave abnormality now present Sinus rhythm no longer present Electronically Signed On 07-15-2020 7:23:02 TIRE AND LUBE TECHNICIAN by Iban Coy [email or web address] <ELECTRONICALLY SIGNED> By: Iban Coy MD, FACC 07/15/20 0723 1608 1608 Iban Coy MD, [facility] /EPI
--- NOTE | 2020-07-15 11:05 | NUR ---
ASSUMED CARE AT 0700, ASSESSMENT AND VITAL SIGNS COMPLETED PER ICU PROTOCOL. BRAYAN SAMAYOA WITH CARDIOLOGY ROUNDED THIS AM, PLAN OF CARE DISCUSSED. DR. MILLER ROUNDED THIS AM WELL. BRAYAN SAMAYOA PAGED FOR PT'S HEART RATE. RN WILL CONTINUE TO MONITOR.
--- NOTE | 2020-07-15 15:17 | NUR ---
Pt now on CCU with continued heart rate issues. Increased confusin and impulsivity last noc requiring a sitter. Dtr Jess here this afternoon visiting and notes that this happened once last year but pt is normally not confused. Jess reports that the pt, herself and her uncle go to Dr. Eliceo Biggs at [facility] for PCP care. She indicates that her uncle has an RN per Ragan that comes out to the home as needed. She indicates they are open to HH f/u for her mom at [place]. PT/OT is continuing to work with the pt. All parties hopeful the pt's mental status will continue to improve as well as her functional mobility. Plan at this time is dc home with hh. Jess denies preference. DC brand planner to send a referral to [facility] for RN,PT,OT and COMMUNITY RESOURCE OFFICER.
--- NOTE | 2020-07-15 15:48 | NUR ---
FAXED REFERRAL TO [facility] HH SPOKE WITH BALDOMERO IN INTAKE SHE CAN ACCEPT AT DISCHARGE PT'S PCP IS DR. NURY BERNSTEIN AT [facility].
--- NOTE | 2020-07-15 16:11 | NUR ---
PT TRANSFERED TO THEIT FROM THE ICU - PATIENT ORIENTED TO ROOM AND BEDSPACE. DAUGHTER IN VISITING WITH PATIENT. MEDS PER ROLF LOWRY BEING TITRATED OFF PATIENT IN SR WITH RATE IN THE 60'S. AMMIO IV CONTINUES ORDERED. NO CO'S OF PAIN OR NAUSEA. PATIENT REMAINS CONFUSED AT TIMES DOES NOT ALWAYS APPEAR TO UNDERSTAND ALL THAT IS SAID TO HER. NO CO'S AT THE PRESENT TIME APPEARS TO BE COMFORTABLE.
[2020-07-16] VITALS (8 sets, daily range): BP systolic 95–188; BP diastolic 58–96
--- NOTE | 2020-07-16 07:28 | NUR ---
PATIENTS CARES WERE ASSUMED AT SHIFT CHANGE. PATIENT WAS ASSESSED AND MEDS WERE PASSED. PATIENT HAD A SITTER AT THE START OF THIS SHIFT. THE SITTER WAS D/C'D AND WAS NOT ABLE TO SEE WHY OR WHAT MADE THIS PATIENT CONFUSED. WENT THREW THE MAR AND DID NOT SEE ANYTHING. SOME OF HER MEDS WERE LATE HOWEVER ALL HER CARES WERE LUMPED TOGETHER TO PROMOTE A RESTFUL ENVIROMENT. PATIENT DID WELL THIS SHIFT. HOUSE SUP CALL TO CONSIDER ATION TO D/C THE SITTER. SPOK TO HER DAUGHTER EARLY AND SHE WILL BE HER LATE IN THE DAY DUE TO HER OWN MRI AND BANDAR, THE PATIENTS BED IS IN A LOW AND LOCKED POSITION
[2020-07-16 10:36] LABS: HEMATOCRIT 38.4 % (37.0-47.0); HEMOGLOBIN 11.5 gm/dL (12.0-15.0); MCHC 29.9 g/dL (28.0-37.0); RBC 4.99 mil/uL (4.20-5.00); RDW 17.8 % (10.5-14.5); WBC 17.5 thou/uL (4.0-11.0)
[2020-07-16 10:50] LABS: CALCIUM 9.4 mg/dL (8.5-10.1); CREATININE 2.2 mg/dL (0.6-1.0); POTASSIUM 4.3 mmol/L (3.5-5.1)
[2020-07-16] MEDS ORDERED: PACERONE 200 M200 M1 PO (10:50)
[2020-07-16] MEDS ORDERED: METOPROLOL SUCC50 MG PO (10:50)
[2020-07-16] MEDS ORDERED: TORSEMIDE20 MG PO (10:51)
[2020-07-16] MEDS ORDERED: NORVASC5 MG PO (10:51)
[2020-07-16] MEDS ORDERED: PREDNISONE 10 M10 M1 PO (10:52)
[2020-07-16] MEDS ORDERED: NOVOLOG100 UNIT/1 SUBQ (10:56)
--- NOTE | 2020-07-16 14:18 | NUR ---
Pt improved overall and possible dc home today with HH. Weaned off o2 this am. Dtr here and can take the pt when dc'd. Nursing addressing elev blood sugar issue this am. DC meeting/event planner to fax final hh orders to [facility] later this afternoon when dc confirmed. Should the pt not dc til Sunday. Unit staff can fax orders to [phone] and call their oncall nurse at [phone] to confirm pt dc to home.
--- NOTE | 2020-07-16 15:22 | NUR ---
PT DISCHARGING TODAY TO HOME WITH [facility] HH FAXED DC ORDERS/SUMMARY SPOKE WITH BALDOMERO IN INTAKE SHE RECEIVED ORDERS AND NEEDED ADDRESS PT DC TO WHICH IS DTR'S ADDRESS ON [address]. THEY WILL CALL PT TO ARRANGE VISITS.
--- NOTE | 2020-07-16 17:14 | NUR ---
ASSUMED CARE AT CHANGE OF SHIFT.ALERT X4, DENIES PAIN, DENIES SOB, O2 EXERCISE TEST WITH NO NEEDS TO GO HOME WITH OXYGEN. BLOOD SUGAR ELEVATED AND TREATED IN DR ALMARAZ. WILL DC HOME WITH .
--- NOTE | 2020-07-19 07:55 | EKG ---
[address] [address] ELECTROCARDIOGRAM REPORT Name: LUBNA MILLER Room #: 202-P [facility] IN ..#: [id number] Admission: 07/12/20 Attend Phys: Gerber Steve MD Discharge: 07/16/20 Date of : 56 Report #: [id number] [facility] ED Test Date: 2020-07-12 Test Time: 22:36:04 Pat Name: LUBNA MILLER Department: Room: 244 P Gender: F Cisco Certified Internetwork Expert: mpark : 1960 Requested By: Gerber Steve Order Number: [id number] MD: Iban Coy Measurements Intervals [place] Rate: 62 P: 26 [place]: 159 QRS: 65 QRSD: 87 T: 33 QT: 449 QTc: 456 Interpretive Statements Sinus rhythm Ventricular premature complex Compared to ECG 07/12/2020 15:32:20 Atrial abnormality no longer present Electronically Signed On 07-13-2020 13:11:47 SECURITY ATTENDANT by Iban Coy [email or web address] <ELECTRONICALLY SIGNED> By: Iban Coy MD, [facility] 07/13/20 1311 35 35 Iban Coy MD, FACC /EPI
--- NOTE | 2020-07-19 07:55 | EKG ---
[address] [address] ELECTROCARDIOGRAM REPORT Name: LUBNA MILLER Room #: 202-P [facility].#: [id number] Admission: 07/12/20 Attend Phys: Gerber Steve MD Discharge: 07/16/20 Date of : 56 Report #: [id number] [facility] ED Test Date: 2020-07-12 Test Time: 15:32:20 Pat Name: LUBNA MILLER Department: Room: [facility] Gender: F Small Products I Assembler: ALDO : 1960 Requested By: Mally Rose Order Number: [id number] MD: Iban Coy Measurements Intervals [place] Rate: 69 P: 17 [place]: 164 QRS: 56 QRSD: 84 T: 39 QT: 419 QTc: 449 Interpretive Statements Sinus rhythm Ventricular trigeminy Left atrial enlargement Compared to ECG 04/24/2019 07:44:39 Atrial abnormality now present Electronically Signed On 07-13-2020 7:21:44 RN CLINICAL COORDINATOR by Iban Coy [email or web address] <ELECTRONICALLY SIGNED> By: Iban Coy MD, [facility] 07/13/20 0721 31 31 Iban Coy MD, FACC /EPI
== END 2020-07-16 17:46 | disposition home health service (06) | DRG 871 ==
LOC: ER 14:36 → ICU 17:25 → EROBS 17:25 → ICU 07-13 01:15 → 2N 07-15 13:39
PROVIDERS: Emergency Medicine; Nurse Practitioner; Pediatrics; Physician Assistant; ADMIT Hospitalist; ATTEND Hospitalist
PROC: 5A09357 Assistance with Respiratory Ventilation, Less than 24 Consecutive Hours, Continuous Positive Airway Pressure (ICD-10-PCS; principal; 2020-07-12)
PROC: 5A0935A Assistance with Respiratory Ventilation, Less than 24 Consecutive Hours, High Flow/Velocity Cannula (ICD-10-PCS; 2020-07-15)
PROC: 5A0935A Assistance with Respiratory Ventilation, Less than 24 Consecutive Hours, High Flow/Velocity Cannula (ICD-10-PCS; 2020-07-16)
DX: A41.9 Sepsis, unspecified organism (principal); J96.01 Acute respiratory failure with hypoxia; J18.9 Pneumonia, unspecified organism; J96.02 Acute respiratory failure with hypercapnia; I50.31 Acute diastolic (congestive) heart failure; N17.9 Acute kidney failure, unspecified; E11.9 Type 2 diabetes mellitus without complications; D47.3 Essential (hemorrhagic) thrombocythemia; I48.0 Paroxysmal atrial fibrillation; E78.00 Pure hypercholesterolemia, unspecified; I11.0 Hypertensive heart disease with heart failure; I25.10 Atherosclerotic heart disease of native coronary artery without angina pectoris; Z20.828 Contact with and (suspected) exposure to other viral communicable diseases; Z88.0 Allergy status to penicillin; Z87.891 Personal history of nicotine dependence; Z95.5 Presence of coronary angioplasty implant and graft; Z82.49 Family history of ischemic heart disease and other diseases of the circulatory system; Z83.3 Family history of diabetes mellitus; Z79.82 Long term (current) use of aspirin; Z79.899 Other long term (current) drug therapy; Z28.21 Immunization not carried out because of patient refusal
CPT/HCPCS: 10078; 10081; 10203

== ENCOUNTER → 2020-07-27 | Outpatient (CLI) | payer OTHER ==
[~2020-07-27] MED LIST changes: +METOPROLOL SUCC50 MG PO; +NORVASC5 MG PO; +PACERONE 200 M200 M1 PO; +PREDNISONE 10 M10 M1 PO; +TORSEMIDE20 MG PO
== END ==
LOC: SJCVC 13:41
PROVIDERS: ATTEND Internal Medicine Cardiovascular Disease
DX: I11.0 Hypertensive heart disease with heart failure (principal); I50.30 Unspecified diastolic (congestive) heart failure; I48.0 Paroxysmal atrial fibrillation; I25.10 Atherosclerotic heart disease of native coronary artery without angina pectoris; R00.2 Palpitations; E11.9 Type 2 diabetes mellitus without complications; E78.00 Pure hypercholesterolemia, unspecified; E66.9 Obesity, unspecified; Z79.899 Other long term (current) drug therapy; Z79.4 Long term (current) use of insulin; Z88.0 Allergy status to penicillin; Z88.1 Allergy status to other antibiotic agents

== ENCOUNTER 2020-08-10 15:13 | Inpatient (IN) | payer OTHER ==
[~2020-08-10] VITALS: Ht 167.6 cm; Wt 101.5 kg
[2020-08-10 15:37] VITALS: BP 172/93
[2020-08-10 16:21] LABS: HEMOGLOBIN 9.1 gm/dL (12.0-15.0); MCH 23.1 pg (26.0-34.0); MCHC 30.3 g/dL (28.0-37.0); MCV 76.1 fL (80.0-100.0); PLATELET COUNT 551 thou/uL (150-400); RBC 3.94 mil/uL (4.20-5.00); RDW 18.3 % (10.5-14.5); WBC 10.6 thou/uL (4.0-11.0)
[2020-08-10 16:26] LABS: HCO3 27.2 mmol/L (22.0-26.0); PCO2 51.4 mmHg (35.0-45.0); PO2 73.3 mmHg (80.0-100.0); pH 7.342 (7.360-7.450); sO2 93.8 % (92.0-98.0)
[2020-08-10] MEDS ORDERED: METFORMIN HCL500 M3 PO (16:34)
[2020-08-10] MEDS ORDERED: ELIQUIS5 MG PO (16:35)
[2020-08-10] MEDS ORDERED: OMEPRAZOLE40 MG PO (16:35)
[2020-08-10] MEDS ORDERED: LIPITOR 20 MG T20 M1 PO (16:36)
[2020-08-10 16:37] LABS: ANION GAP 6 mmol/L (7-16); BUN 40 mg/dL (7-18); CALCIUM 9.4 mg/dL (8.5-10.1); CHLORIDE 107 mmol/L (98-107); CO2 29 mmol/L (21-32); CREATININE 1.9 mg/dL (0.6-1.0); GLUCOSE 118 mg/dL (74-106); POTASSIUM 4.5 mmol/L (3.5-5.1); SODIUM 142 mmol/L (136-145)
[2020-08-10] MEDS ORDERED: LOPRESSOR50 MG PO (16:38)
[2020-08-10 16:39] LABS: ANISOCYTOSIS 1+; HYPOCHROMASIA 1+; MICROCYTES 1+; NUCLEATED RBCS 2 /100WBC; PLATELET ESTIMATE INCREASED
[2020-08-10 16:40] LABS: MACROCYTES SLIGHT; OVALOCYTES FEW; POIKILOCYTOSIS SLIGHT; POLYCHROMASIA SLIGHT
[2020-08-10 16:43] LABS: ALBUMIN 3.6 g/dL (3.4-5.0); SGOT 20 U/L (15-37); SGPT 18 U/L (14-59); TOTAL BILIRUBIN 0.7 mg/dL (0.2-1.0); TOTAL PROTEIN 6.7 g/dL (6.4-8.2); TROPONIN-I <0.06 ng/mL (<0.06)
--- NOTE | 2020-08-10 17:30 | EKG ---
[address] [place] [address] ELECTROCARDIOGRAM REPORT Name: LUBNA MILLER Room #: REG HERB [place]#: [id number] Admission: 08/10/20 Attend Phys: Discharge: Date of : 56 Report #: [id number] [facility] ED Test Date: 2020-08-10 Test Time: 16:21:14 Pat Name: LUBNA MILLER Department: Room: Gender: F Prison Warden: ana : 1960 Requested By: Mally Rose Order Number: [id number] MD: Stefano Rangel Measurements Intervals [place] Rate: 64 P: 15 [place]: 157 QRS: 59 QRSD: 89 T: 57 QT: 436 QTc: 450 Interpretive Statements Sinus rhythm No significant abnormality Compared to ECG 07/14/2020 16:08:49 Sinus rhythm has replaced atrial fibrillation Electronically Signed On 08-10-2020 17:30:16 MEDICATION TECHNICIAN by Stefano Rangel [email or web address] <ELECTRONICALLY SIGNED> By: Stefano Rangel MD, [facility] 08/10/20 1730 1621 1621 Stefano Rangel MD, FACC /EPI
[2020-08-10 18:01] VITALS: BP 175/91
[2020-08-10 18:13] VITALS: BP 134/84
[2020-08-10 19:44] VITALS: BP 144/85
--- NOTE | 2020-08-10 19:52 | NUR ---
PATIENT IS A NEW ADMISSION TO THE UNIT THIS SHIFT. SHE ARRIVED VIA CART FROM THE ER AND WAS ABLE TO AMBULATE TO BED WITH ASSISTANCE INCIDENT FREE. PATIENT IS MOSTLY ALERT AND ORIENTED AND WILL BE ABLE TO PARTICIPATE IN ADMISSION. PATIENT IS PRIMARILY PASHTO SPEAKING. PATIENT HAS NO COMPLAINTS OF PAIN OR SHORTNESS OF BREATHE AT THIS TIME. NURSE TO COMPLETE ADMISSION AND INITIATE PLAN OF CARE.
[2020-08-11] VITALS (7 sets, daily range): BP systolic 105–151; BP diastolic 47–120
[2020-08-11 05:28] LABS: HEMOGLOBIN 9.3 gm/dL (12.0-15.0); MCH 22.2 pg (26.0-34.0); MCV 76.6 fL (80.0-100.0); RBC 4.17 mil/uL (4.20-5.00); RDW 18.2 % (10.5-14.5); WBC 11.6 thou/uL (4.0-11.0)
[2020-08-11 06:08] LABS: CALCIUM 9.3 mg/dL (8.5-10.1); POTASSIUM 4.3 mmol/L (3.5-5.1)
[2020-08-11 06:14] LABS: % SATURATION 4 % (20-39); IRON 22 ug/dL (50-170); TIBC 624 ug/dL (250-450)
--- NOTE | 2020-08-11 08:01 | NUR ---
SLEPT MOST OF SHIFT. DENIES COMPLAINTS. TELEMETRY NOW SHOWS AFIB RVR. DR. HARRINGTON HERE AND NOTIFIED. WILL PUT IN ORDERS. CONTINUE TO ASSES CLOSELY.
--- NOTE | 2020-08-11 16:41 | NUR ---
ASSUMED CARE PT APPROX 1050. PT ALERT AND ORIENTED.VSS. BLOOD SUGAR STABLE. O2 SATS WNL ON 2L. PT C/O LEFT SIDE SHAKINESS AND TREMORS AND FEELING A "LAG" ON LEFT SIDE, PHYSICIAN NOTIFIED ORDERS RECEIVED. SEE CT SCAN RESULTS. DAUGHTER IN ROOM AND UPDATED ON POC. PT CURRENTLY AWAKE IN BED LAYING COMFORTABLY. DENIES NEEDS. CONTINUING TO MONITOR AND FOLLOW POC. WILL PASS ON REPORT TO JAYDEN BROWN.
--- NOTE | 2020-08-11 18:35 | NUR ---
met with patient who admits with CHF. Patient lives with Brother in basement apt with dtr Jess. Patient rec HH [facility] management professional. PCP Dr Biggs from [facility]. Patient on oxygen and does not have oxygen at home. She has a flight of steps to basement apt. Independent with adls. Patient want to cont with HH care at [place].
[2020-08-12 05:31] VITALS: BP 129/64
[2020-08-12 05:48] LABS: CREATININE 2.5 mg/dL (0.6-1.0); POTASSIUM 3.8 mmol/L (3.5-5.1)
--- NOTE | 2020-08-12 07:19 | EKG ---
[address] [address] ELECTROCARDIOGRAM REPORT Name: LUBNA MILLER Room #: 204- ADM IN M.R.#: [id number] Admission: 08/10/20 Attend Phys: Tomas Londono MD Discharge: Date of : 56 Report #: [id number] [facility] Test Date: 2020-08-12 Test Time: 07:17:58 Pat Name: LUBNA MILLER Department: Room: 204 P Gender: F Real Estate Asset Manager: ANDREIA : 1960 Requested By: Stefano Rangel Order Number: [id number] MD: Iban Coy Measurements Intervals [place] Rate: 57 P: 33 [place]: 155 QRS: 55 QRSD: 80 T: 69 QT: 442 QTc: 431 Interpretive Statements Sinus rhythm Probable left atrial enlargement Baseline wander in lead(s) V5 Compared to ECG 08/10/2020 16:21:14 No significant change Electronically Signed On 08-12-2020 7:19:33 MENTAL HEALTH CLINICIAN by Iban Coy [email or web address] <ELECTRONICALLY SIGNED> By: Iban Coy MD, [facility] 08/12/20718 6 6 Iban Coy MD, [facility] /EPI
[2020-08-12 07:55] VITALS: BP 119/60
--- NOTE | 2020-08-12 08:32 | NUR ---
SLEPT MOST OF SHIFT. CONVERTED TO SR FROM AFIB AROUND 1900 LAST PM. REMAINS IN SR THIS AM. DENIES SHORTNESS OF AIR OR CHEST PAIN, WORKING ON GOALS AND PLAN OF CARE FOR NOC. CONTINUE TO ASSES CLOSLY
[2020-08-12 12:15] VITALS: BP 110/50; BP 110/506
[2020-08-12 15:25] VITALS: BP 112/58
--- NOTE | 2020-08-12 18:30 | NUR ---
ASSUMED CARE OF PT AT SHIFT CHANGE. ASSESSMENTS CHARTED. MEDS GIVEN PER SEP. PT A&OX4, NO C/O PAIN. 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 CONTINUING TO DIURESE, POSSIBLE DC TOMORROW. WILL CONTINUE TO MOINTOR AND FOLLOW POC.
[2020-08-12 19:20] VITALS: BP 137/54
[2020-08-13 04:00] VITALS: BP 126/70
[2020-08-13 05:45] LABS: ALBUMIN 3.2 g/dL (3.4-5.0); CALCIUM 8.9 mg/dL (8.5-10.1); CREATININE 2.4 mg/dL (0.6-1.0); PHOSPHORUS 4.3 mg/dL (2.5-4.9)
--- NOTE | 2020-08-13 06:22 | NUR ---
SLEPT MOST OF SHIFT. DENIES COMPLAINTS OF PAIN. STATES SHORTNESS OF AIR IS BETTER. MOVES SELF AROUND IN BED. GRANADOS REMAINS FOR STRICT I&O. CONTINUE TO ASSES. PROGRESSING SLOWLY TOWARDS DISCHARGE GOALS.
[2020-08-13 06:52] LABS: URINE BILIRUBIN NEGATIVE (Negative); URINE BLOOD NEGATIVE (Negative); URINE CLARITY CLEAR; URINE COLOR YELLOW; URINE GLUCOSE-RANDOM* NEGATIVE (Negative); URINE KETONES NEGATIVE (Negative); URINE LEUKOCYTES NEGATIVE (Negative); URINE NITRITE NEGATIVE (Negative); URINE PROTEIN (DIPSTICK) 2+ (Negative); URINE SPECIFIC GRAVITY 1.025 (1.005-1.035)
--- NOTE | 2020-08-13 07:21 | EKG ---
[address] [address] ELECTROCARDIOGRAM REPORT Name: LUBNA MILLER Room #: 204-P ADM IN M.R.#: [id number] Admission: 08/10/20 Attend Phys: Tomas Londono MD Discharge: Date of : 56 Report #: [id number] [facility] Test Date: 2020-08-13 Test Time: 07:19:40 Pat Name: LUBNA MILLER Department: Room: 204 P Gender: F Mother Helper: ANDREIA : 1960 Requested By: Stefano Rangel Order Number: [id number] : Iban Coy Measurements Intervals [place] Rate: 60 P: 18 [place]: 146 QRS: 47 QRSD: 83 T: 51 QT: 458 QTc: 458 Interpretive Statements Sinus rhythm Compared to ECG 08/12/2020 07:17:58 No significant change Electronically Signed On 08-13-2020 7:21:14 BRANCH LOGISTICS SUPERVISOR by Iban Coy [email or web address] <ELECTRONICALLY SIGNED> By: Iban Coy MD, [facility] 08/13/20720 8 07 Iban Coy MD, FACC /EPI
[2020-08-13 07:22] LABS: BACTERIA None Seen /HPF (None Seen); CASTS None Seen /LPF (None Seen); CRYSTALS None Seen /LPF (None Seen); SQUAMOUS 4-10 Moderate /LPF (0-3); URINE RBC None Seen /HPF (0-2); URINE WBC 0-5 Rare /HPF (0-5)
[2020-08-13 07:24] LABS: PROT/CREAT RATIO 1.3; URINE PROTEIN-RANDOM* 118.9 mg/dL (<11.9)
[2020-08-13 07:25] VITALS: BP 136/73
[2020-08-13 11:05] VITALS: BP 132/58
--- NOTE | 2020-08-13 11:47 | NUR ---
FOUND PATIENT SLEEPING IN THE CHAIR WHEN I WENT IN TO DO THE REST AND EXERCISE. PATIENT WHILE SLEEPING WAS AT 84%. I TURNED ON 2LNC WHILE OBSERVING THE PATIENT WHO WAS LOUDLY SNORING WELL AND HER SATURATION RETURNED TO 90% PRIOR TO WALKING. WE WALKED ON 2LNC AND HER SATURATION DIDN'T GET ABOVE 91%. WE DIDN'T GET A GOOD START TO THE WALK WITH THE ADDITION OF O2 WHILE SLEEPING. I INFORMED DR BORJA OF HER WHILE OXYGENATION WHILE SLEEPING AND HE ORDERED A NOCTURNAL DESAT STUDY PRIOR TO TOMORROWS DISCHARGE.
[2020-08-13 12:06] VITALS: BP 136/73
--- NOTE | 2020-08-13 15:16 | NUR ---
Case discussed with the care team. Dtr here visiting during PT session. RT noted low o2 sat at rest and also while during therapy session. Nocturnal desat study ordered tonight. Referral sent to [facility] for possible home o2 setup at [place]. They will need a script for oxygen and the noc desat study faxed. The pt was also on service with [facility] prior to admission. They will need her dc summary and instructions faxed to them and their manager of administration nurse notified at [place]. Possible dc this weekend if improved.
[2020-08-13 16:10] VITALS: BP 120/63
[2020-08-13 19:00] VITALS: BP 128/49
--- NOTE | 2020-08-13 19:29 | NUR ---
ASSUMED CARE PT SHIFT CHANGE. ASSESSMENT CHARTED.MEDS GIVEN PER SEP. PT ALERT AND ORIENTED VSS DENIES PAIN O2 SATS WNL 2-3L. PT UP MIN ASSIST TOLERATING WELL. MIRALAX ORDERED FOR CONSTIPATION. DAUGHTER AT BEDSIDE AND UPDATED ON POC. PLAN FOR PT TO DC WITH HH AND OXYGEN WHEN MEDICALLY STABLE. DENIES NEEDS AT THIS TIME. CONTINUING TO MONITOR AND FOLLOW POC. REPORT PASSED TO JAYDEN BROWN.
[2020-08-14 03:25] LABS: ALBUMIN 3.3 g/dL (3.4-5.0); CREATININE 2.2 mg/dL (0.6-1.0); PHOSPHORUS 3.9 mg/dL (2.5-4.9); POTASSIUM 3.5 mmol/L (3.5-5.1)
[2020-08-14 04:00] VITALS: BP 143/63
--- NOTE | 2020-08-14 04:09 | NUR ---
Assumed pt care at 1900. Pt is alert and oriented. No sign of distress noted in pt. Pt is stable. Denies any pain. Fall pt in place. Assessment completed and documented. Scheduled meds administered. Pt is stable. No acute events overnight. Bradycardia noted on the monitor. No further needs at this time.
[2020-08-14 07:40] VITALS: BP 112/57
[2020-08-14 08:59] LABS: HEMATOCRIT 30.9 % (37.0-47.0); MCH 22.7 pg (26.0-34.0); MCHC 29.3 g/dL (28.0-37.0); MCV 77.5 fL (80.0-100.0); OBSERVED RETIC COUNT 4.69 % (0.6-2.6); RBC 3.98 mil/uL (4.20-5.00); RDW 18.4 % (10.5-14.5); WBC 10.4 thou/uL (4.0-11.0)
[2020-08-14 09:00] LABS: PLATELET COUNT 462 thou/uL (150-400)
[2020-08-14 10:29] LABS: ABSOLUTE NEUTROPHILS 7.6 thou/uL (1.4-8.2)
[2020-08-14 10:30] LABS: ANISOCYTOSIS 2+; HYPOCHROMASIA 2+; LARGE PLATELETS OCCASIONAL; MICROCYTES 2+; OVALOCYTES 1+; POLYCHROMASIA SLIGHT
[2020-08-14 10:31] LABS: TEARDROPS OCCASIONAL
--- NOTE | 2020-08-14 12:36 | EKG ---
[address] [address] ELECTROCARDIOGRAM REPORT Name: LUBNA MILLER Room #: 204- ADM IN M.R.#: [id number] Admission: 08/10/20 Attend Phys: Tomas Londono MD Discharge: Date of : 56 Report #: [id number] [facility] Test Date: 2020-08-14 Test Time: 08:59:17 Pat Name: LUBNA MILLER Department: Room: 204 Gender: F Pumpman: : 1960 Requested By: Stefano Rangel Order Number: [id number] MD: Stefano Rangel Measurements Intervals [place] Rate: 59 P: 7 [place]: 145 QRS: 66 QRSD: 77 T: 55 QT: 461 QTc: 457 Interpretive Statements Sinus bradycardia Otherwise normal tracing Compared to ECG 08/13/2020 07:19:40 No significant changes found Electronically Signed On 08-14-2020 12:36:01 NIGHT WAREHOUSE MANAGER by Stefano Rangel [email or web address] <ELECTRONICALLY SIGNED> By: Stefano Rangel MD, [facility] 08/14/20 1236 0859 0859 Stefano Rangel MD, FACC /EPI
[2020-08-14 16:45] VITALS: BP 137/40
--- NOTE | 2020-08-14 16:52 | NUR ---
PT ALERT AND ORIENTED TIMES FOUR. VSS. PT DENIES PAIN/SOA. PT TOLERATES MEDS AND MEALS. PT UP AB BELKYS WITH STEADY GAIT. PT DAUGHTER AT BEDSIDE. PLANS FOR DISCHARGE TOMORROW. PT PROGRESSING TOWRADS POC GOALS.
[2020-08-14 19:30] VITALS: BP 142/82
[2020-08-15 04:30] VITALS: BP 11/68
[2020-08-15 07:50] VITALS: BP 143/79
--- NOTE | 2020-08-15 07:56 | NUR ---
REASSESSMENTS CHARTED, MEDS CHARTED GIVEN. AFIB ON TELEMETRY DURING SHIFT. UP AT BELKYS IN ROOM. PATIENT IS READY TO GO HOME EXCEPT FOR HAVING OXYGEN SET UP AT HER HOME. DAY SHIFT WILL WORK ON GETTING IT SET UP. PATIENT ON STRICT FLUID RESTRICTIONS OF 1500 PER DAY. FALL PRECAUTIONS IN PLACE, DENIED PAIN.
[2020-08-15 09:17] LABS: HEMATOCRIT 37.6 % (37.0-47.0); MCH 23.3 pg (26.0-34.0); MCHC 30.6 g/dL (28.0-37.0); MCV 76.2 fL (80.0-100.0); RBC 4.93 mil/uL (4.20-5.00); RDW 18.3 % (10.5-14.5); WBC 10.7 thou/uL (4.0-11.0)
[2020-08-15 09:27] LABS: ALBUMIN 3.9 g/dL (3.4-5.0); CALCIUM 10.5 mg/dL (8.5-10.1); CREATININE 1.9 mg/dL (0.6-1.0); HEMOGLOBIN 11.5 gm/dL (12.0-15.0); MAGNESIUM 1.9 mg/dL (1.8-2.4); POTASSIUM 3.7 mmol/L (3.5-5.1); TOTAL BILIRUBIN 0.7 mg/dL (0.2-1.0); TOTAL PROTEIN 7.2 g/dL (6.4-8.2)
[2020-08-15 09:30] LABS: PLATELET COUNT 549 thou/uL (150-400)
[2020-08-15 10:35] LABS: ABSOLUTE NEUTROPHILS 8.3 thou/uL (1.4-8.2); ANISOCYTOSIS 1+; MYELOCYTES 1 %; POIKILOCYTOSIS 1+
[2020-08-15 10:36] LABS: HYPOCHROMASIA SLIGHT; OVALOCYTES FEW; TEARDROPS OCCASIONAL
[2020-08-15 10:37] LABS: LARGE PLATELETS FEW
[2020-08-15 11:25] VITALS: BP 133/71
[2020-08-15 11:34] LABS: CALCIUM 10.3 mg/dL (8.5-10.1); CREATININE 1.9 mg/dL (0.6-1.0); PHOSPHORUS 4.1 mg/dL (2.6-4.7)
[2020-08-15] MEDS ORDERED: TORSEMIDE20 MG PO (12:06)
[2020-08-15] MEDS ORDERED: LANTUS100 UNIT/M SUBQ (12:07)
[2020-08-15] MEDS ORDERED: FOLIC ACID1 MG PO (12:08)
[2020-08-15] MEDS ORDERED: HUMALOG100 UNIT/1 SUBQ (12:09)
--- NOTE | 2020-08-15 14:50 | NUR ---
PROGRESSING TOWARDS POC GOALS. DC HOME WITH HH AND 02.
[2020-08-15 15:22] VITALS: BP 136/73
== END 2020-08-15 16:50 | disposition home health service (06) | DRG 291 ==
LOC: ER 15:13 → 2N 17:39 → EROBS 17:39 → 2N 19:38
PROVIDERS: Hospitalist; Internal Medicine; Physician Assistant; ADMIT Hospitalist; ATTEND Hospitalist
DX: I13.0 Hypertensive heart and chronic kidney disease with heart failure and stage 1 through stage 4 chronic kidney disease, or unspecified chronic kidney disease (principal); J96.01 Acute respiratory failure with hypoxia; I50.43 Acute on chronic combined systolic (congestive) and diastolic (congestive) heart failure; N17.9 Acute kidney failure, unspecified; E87.0 Hyperosmolality and hypernatremia; I48.20 Chronic atrial fibrillation, unspecified; D68.59 Other primary thrombophilia; E11.22 Type 2 diabetes mellitus with diabetic chronic kidney disease; I25.10 Atherosclerotic heart disease of native coronary artery without angina pectoris; E78.5 Hyperlipidemia, unspecified; E78.00 Pure hypercholesterolemia, unspecified; D50.9 Iron deficiency anemia, unspecified; E66.9 Obesity, unspecified; N18.9 Chronic kidney disease, unspecified; D47.3 Essential (hemorrhagic) thrombocythemia; E11.649 Type 2 diabetes mellitus with hypoglycemia without coma; Z20.822 Contact with and (suspected) exposure to COVID-19; Z87.891 Personal history of nicotine dependence; Z68.36 Body mass index [BMI] 36.0-36.9, adult; Z95.5 Presence of coronary angioplasty implant and graft; Z79.01 Long term (current) use of anticoagulants; Z79.4 Long term (current) use of insulin; Z79.899 Other long term (current) drug therapy; Z88.0 Allergy status to penicillin; Z88.8 Allergy status to other drugs, medicaments and biological substances; Z91.14 Patient's other noncompliance with medication regimen
CPT/HCPCS: 10081

== ENCOUNTER → 2020-08-17 | Outpatient (CLI) | payer OTHER ==
[~2020-08-17] MED LIST changes: +FOLIC ACID1 MG PO; +HUMALOG100 UNIT/1 SUBQ; +LIPITOR 20 MG T20 M1 PO; +LOPRESSOR50 MG PO; +METFORMIN HCL500 M3 PO; +OMEPRAZOLE40 MG PO
== END ==
LOC: SJCVC 15:12
PROVIDERS: ATTEND Internal Medicine Cardiovascular Disease
DX: I48.0 Paroxysmal atrial fibrillation (principal); I50.33 Acute on chronic diastolic (congestive) heart failure; Z88.8 Allergy status to other drugs, medicaments and biological substances; Z88.0 Allergy status to penicillin

== ENCOUNTER → 2020-08-20 | Outpatient (CLI) | payer OTHER | LOC: SJCVC 09:16 | PROVIDERS: ATTEND Internal Medicine Cardiovascular Disease | DX: I11.0 Hypertensive heart disease with heart failure (principal); I50.33 Acute on chronic diastolic (congestive) heart failure; E78.00 Pure hypercholesterolemia, unspecified; R60.9 Edema, unspecified; I25.10 Atherosclerotic heart disease of native coronary artery without angina pectoris; I48.91 Unspecified atrial fibrillation; E11.9 Type 2 diabetes mellitus without complications; E66.9 Obesity, unspecified; Z79.899 Other long term (current) drug therapy; Z87.891 Personal history of nicotine dependence; Z88.0 Allergy status to penicillin; Z88.1 Allergy status to other antibiotic agents ==

== ENCOUNTER → 2020-09-24 | Outpatient (CLI) | payer OTHER | LOC: SJCVC 13:35 | PROVIDERS: ATTEND Internal Medicine Cardiovascular Disease | DX: E11.22 Type 2 diabetes mellitus with diabetic chronic kidney disease (principal); I13.0 Hypertensive heart and chronic kidney disease with heart failure and stage 1 through stage 4 chronic kidney disease, or unspecified chronic kidney disease; N18.9 Chronic kidney disease, unspecified; I50.30 Unspecified diastolic (congestive) heart failure; I25.10 Atherosclerotic heart disease of native coronary artery without angina pectoris; R60.9 Edema, unspecified; I48.91 Unspecified atrial fibrillation; E78.00 Pure hypercholesterolemia, unspecified; E66.9 Obesity, unspecified; Z87.891 Personal history of nicotine dependence; Z79.899 Other long term (current) drug therapy; Z79.4 Long term (current) use of insulin; Z88.1 Allergy status to other antibiotic agents; Z88.0 Allergy status to penicillin ==

== ENCOUNTER → 2020-10-15 | Outpatient (CLI) | payer OTHER | LOC: SJCVC 13:26 | PROVIDERS: ATTEND Internal Medicine Cardiovascular Disease | DX: I11.0 Hypertensive heart disease with heart failure (principal); I50.30 Unspecified diastolic (congestive) heart failure; Z88.8 Allergy status to other drugs, medicaments and biological substances; Z88.0 Allergy status to penicillin ==

== ENCOUNTER → 2021-01-07 | Outpatient (CLI) | payer OTHER | LOC: SJCVC 15:04 | PROVIDERS: ATTEND Internal Medicine Cardiovascular Disease | DX: I25.10 Atherosclerotic heart disease of native coronary artery without angina pectoris (principal); I11.0 Hypertensive heart disease with heart failure; I50.30 Unspecified diastolic (congestive) heart failure; I48.0 Paroxysmal atrial fibrillation; R60.9 Edema, unspecified; E11.9 Type 2 diabetes mellitus without complications; E66.9 Obesity, unspecified; Z79.4 Long term (current) use of insulin; Z87.891 Personal history of nicotine dependence; Z79.899 Other long term (current) drug therapy; Z88.1 Allergy status to other antibiotic agents ==

== ENCOUNTER → 2021-04-19 | Outpatient (CLI) | payer OTHER | LOC: SJCVC 10:01 | PROVIDERS: ATTEND Internal Medicine Cardiovascular Disease | DX: I13.0 Hypertensive heart and chronic kidney disease with heart failure and stage 1 through stage 4 chronic kidney disease, or unspecified chronic kidney disease (principal); E11.22 Type 2 diabetes mellitus with diabetic chronic kidney disease; N18.9 Chronic kidney disease, unspecified; I48.0 Paroxysmal atrial fibrillation; I50.30 Unspecified diastolic (congestive) heart failure; I25.10 Atherosclerotic heart disease of native coronary artery without angina pectoris; R60.9 Edema, unspecified; E78.00 Pure hypercholesterolemia, unspecified; E66.9 Obesity, unspecified; Z88.0 Allergy status to penicillin; Z88.8 Allergy status to other drugs, medicaments and biological substances; Z79.4 Long term (current) use of insulin; Z79.899 Other long term (current) drug therapy; Z87.891 Personal history of nicotine dependence ==

== ENCOUNTER → 2021-06-07 | Outpatient (CLI) | payer OTHER | LOC: SJCVC 13:31 | PROVIDERS: ATTEND Internal Medicine Cardiovascular Disease | DX: R60.9 Edema, unspecified (principal); I50.30 Unspecified diastolic (congestive) heart failure; I25.10 Atherosclerotic heart disease of native coronary artery without angina pectoris; I13.0 Hypertensive heart and chronic kidney disease with heart failure and stage 1 through stage 4 chronic kidney disease, or unspecified chronic kidney disease; N18.9 Chronic kidney disease, unspecified; E11.9 Type 2 diabetes mellitus without complications; E78.00 Pure hypercholesterolemia, unspecified; Z88.0 Allergy status to penicillin; Z88.8 Allergy status to other drugs, medicaments and biological substances; Z79.84 Long term (current) use of oral hypoglycemic drugs; Z79.899 Other long term (current) drug therapy; Z87.891 Personal history of nicotine dependence; Z95.818 Presence of other cardiac implants and grafts ==

== ENCOUNTER → 2021-06-27 | Outpatient (CLI) | payer OTHER | LOC: SJCVC 13:06 | PROVIDERS: ATTEND Internal Medicine Cardiovascular Disease | DX: R60.9 Edema, unspecified (principal); I25.10 Atherosclerotic heart disease of native coronary artery without angina pectoris; I50.30 Unspecified diastolic (congestive) heart failure; I48.0 Paroxysmal atrial fibrillation; I10 Essential (primary) hypertension; E78.00 Pure hypercholesterolemia, unspecified; R00.2 Palpitations; Z88.8 Allergy status to other drugs, medicaments and biological substances; Z79.84 Long term (current) use of oral hypoglycemic drugs; Z79.899 Other long term (current) drug therapy; Z87.891 Personal history of nicotine dependence ==

== ENCOUNTER 2021-07-17 00:16 | Emergency (ER) | payer OTHER ==
[~2021-07-17] VITALS: Ht 170.2 cm; Wt 113.4 kg
[2021-07-17 01:48] VITALS: BP 154/72
== END 2021-07-17 01:48 | disposition home or self-care (01) ==
LOC: ER 00:16
DX: S01.81XA Laceration without foreign body of other part of head, initial encounter (principal); E78.00 Pure hypercholesterolemia, unspecified; I12.9 Hypertensive chronic kidney disease with stage 1 through stage 4 chronic kidney disease, or unspecified chronic kidney disease; E11.22 Type 2 diabetes mellitus with diabetic chronic kidney disease; N18.9 Chronic kidney disease, unspecified; Z79.899 Other long term (current) drug therapy; Z88.0 Allergy status to penicillin; Z88.8 Allergy status to other drugs, medicaments and biological substances; Z87.891 Personal history of nicotine dependence; W19.XXXA Unspecified fall, initial encounter; Y93.89 Activity, other specified; Y92.89 Other specified places as the place of occurrence of the external cause; Y99.8 Other external cause status

== ENCOUNTER 2021-07-22 15:43 | Emergency (ER) | payer OTHER ==
[~2021-07-22] VITALS: Ht 167.6 cm; Wt 99.8 kg
[2021-07-22 15:50] VITALS: BP 124/76
== END 2021-07-22 16:39 | disposition home or self-care (01) ==
LOC: ER 15:43
DX: S01.81XD Laceration without foreign body of other part of head, subsequent encounter (principal); E78.00 Pure hypercholesterolemia, unspecified; I25.10 Atherosclerotic heart disease of native coronary artery without angina pectoris; I48.91 Unspecified atrial fibrillation; I12.9 Hypertensive chronic kidney disease with stage 1 through stage 4 chronic kidney disease, or unspecified chronic kidney disease; E11.22 Type 2 diabetes mellitus with diabetic chronic kidney disease; N18.9 Chronic kidney disease, unspecified; Z79.4 Long term (current) use of insulin; Z79.51 Long term (current) use of inhaled steroids; Z79.899 Other long term (current) drug therapy; Z79.891 Long term (current) use of opiate analgesic; Z79.1 Long term (current) use of non-steroidal anti-inflammatories (NSAID); Z88.0 Allergy status to penicillin; Z88.6 Allergy status to analgesic agent; Z88.8 Allergy status to other drugs, medicaments and biological substances; Z87.891 Personal history of nicotine dependence; X58.XXXD Exposure to other specified factors, subsequent encounter

== ENCOUNTER → 2021-09-26 | Outpatient (CLI) | payer MEDICARE | LOC: SJCVC 13:43 | PROVIDERS: ATTEND Internal Medicine Cardiovascular Disease | DX: R94.31 Abnormal electrocardiogram [ECG] [EKG] (principal); I13.0 Hypertensive heart and chronic kidney disease with heart failure and stage 1 through stage 4 chronic kidney disease, or unspecified chronic kidney disease; I50.30 Unspecified diastolic (congestive) heart failure; I48.0 Paroxysmal atrial fibrillation; I25.10 Atherosclerotic heart disease of native coronary artery without angina pectoris; R60.9 Edema, unspecified; E11.22 Type 2 diabetes mellitus with diabetic chronic kidney disease; N18.9 Chronic kidney disease, unspecified; E66.9 Obesity, unspecified; T14.8XXA Other injury of unspecified body region, initial encounter; X58.XXXA Exposure to other specified factors, initial encounter; Y93.89 Activity, other specified; Y92.89 Other specified places as the place of occurrence of the external cause; Y99.8 Other external cause status; Z88.1 Allergy status to other antibiotic agents; Z88.8 Allergy status to other drugs, medicaments and biological substances; Z79.899 Other long term (current) drug therapy ==